=== PATIENT | male | born 1995 | race Two or more races ===

== ENCOUNTER 2018-09-21 14:03 | Emergency (ER) | payer OTHER ==
[~2018-09-21] VITALS: Ht 172.7 cm; Wt 80.9 kg
[2018-09-21 14:14] VITALS: Ht 172.7 cm; Wt 80.9 kg
[2018-09-21 15:11] LABS: BASOPHILS 0.4 % (0-2); EOSINOPHILS 6.4 % (0-7); HEMATOCRIT 47.1 % (42.0-54.0); HEMOGLOBIN 16.7 g/dL (13.5-17.5); IMMATURE GRANULOCYTES 0.7 % (0-5); LYMPHOCYTES 21.7 % (15-50); MCH 30.8 pg (26.0-34.0); MCHC 35.5 g/dL (31.0-37.0); MCV 86.9 fL (80.0-100.0); MEAN PLATELET VOLUME 10.6 fL (7.4-10.4); MONOCYTES 7.9 % (2-11); NEUTROPHILS 62.9 % (40-80); PLATELET COUNT 230 10x3/uL (130-400); RBC 5.42 10x6/uL (4.20-6.10); RDW 12.1 % (11.5-14.5); WBC 8.3 10x3/uL (4.8-10.8)
[2018-09-21 15:25] LABS: ALBUMIN 4.2 g/dL (3.4-5.0); ALKALINE PHOSPHATASE 70 U/L (46-116); ALT (SGPT) 61 U/L (10-68); BILIRUBIN - TOTAL 0.58 mg/dL (0.2-1.3); CALC OSMOLALITY 281 mosm/kg (275-300); CALCIUM 8.9 mg/dL (8.5-10.1); CARBON DIOXIDE 31.2 mmol/L (21.0-32.0); CHLORIDE - SERUM 105 mmol/L (98-107); CREATININE - SERUM 0.9 mg/dL (0.6-1.3); GLUCOSE 96 mg/dL (74-106); POTASSIUM - SERUM 4.1 mmol/L (3.5-5.1); PROTEIN - SERUM 7.7 g/dL (6.4-8.2); SODIUM 142 mmol/L (136-145); UREA NITROGEN 9 mg/dL (7-18); eGFR NON AFRICAN AMERICAN > 90 mL/min (90-120)
[2018-09-21 15:53] LABS: APTT 29.8 SECONDS (22.8-39.4); INR 1.04 (0.85-1.17); PROTIME 13.2 SECONDS (11.6-15.0)
[2018-09-21] MEDS ORDERED: NAPROXEN SODIU550 M1 PO (16:51)
[2018-09-21] MEDS ORDERED: ROBAXIN500 MG PO (16:51)
[2018-09-21 17:55] VITALS: BP 108/72
== END 2018-09-21 17:55 | disposition home or self-care (01) ==
LOC: D.ER 14:03
PROVIDERS: Family Medicine
DX: S16.1XXA Strain of muscle, fascia and tendon at neck level, initial encounter (principal); V49.9XXA Car occupant (driver) (passenger) injured in unspecified traffic accident, initial encounter; Y93.89 Activity, other specified; Y92.410 Unspecified street and highway as the place of occurrence of the external cause; S80.12XA Contusion of left lower leg, initial encounter; S29.012A Strain of muscle and tendon of back wall of thorax, initial encounter; M54.2 Cervicalgia